=== PATIENT | male | born 1955 | race Two or more races ===

== ENCOUNTER 2024-12-30 01:51 | Emergency (ER) | payer MEDICAID, SELFPAY ==
[2024-12-30 01:51] VITALS: BMI 31.6
[2024-12-30 02:00] VITALS: BP 153/89; PULSE 111; RESP 20; TEMP 36.8; O2SAT 96
[2024-12-30 03:13] LABS: Collection Type, Urine Catheter; Squamous Epithelial Cell,Urine 0 /hpf (0-5); WBC,Urine 0 /hpf (0-5)
[2024-12-30 03:20] LABS: Bilirubin,Urine Negative (Negative); Blood,Urine 2+ (Negative); Clarity,Urine Clear (Clear/Hazy); Color,Urine Colorless (Lt Yel-Yel); Glucose, Urine 3+ (Negative); Ketones,Urine Negative (Negative); Leukocyte Esterase,Urine Negative (Negative); Nitrite,Urine Negative (Negative); PH,Urine 6.0 (5.0-7.0); Protein,Urine Negative (Neg - Trace); RBC,Urine < 1 /hpf (0-3); Specific Gravity,Urine 1.005 (1.001-1.035); Urobilinogen,Urine Negative mg/dL (0.0-1.0)
--- NOTE | 2024-12-30 03:32 | EDNOTE_ITS ---
ED Male Genitalurinary RME/HPI General Chief complaint: Urogenital-Male Stated complaint: I CAN'T URINATE Time Seen by Provider: 12/30/24 02:05 Arrival date/time: 12/30/24 01:51 This is a case of 69-year-old male with history of urinary retention came in in the emergency room due to unable to urinate for 4 hours patient denies any abdominal pain denies any fever chills nausea vomiting or blood in the urine Limitations: no limitations Related Data Previous Rx's ?Medication ?Instructions ?Recorded levofloxacin 750 mg tablet 750 mg PO QDAY #5 tabs 02/04 03/25 tamsulosin 0.4 mg capsule (Flomax) 0.4 mg PO QDAY #30 caps 01/07/24 tamsulosin 0.4 mg capsule (Flomax) 0.4 mg PO QDAY #10 caps 12/30/24 Allergies Allergy/AdvReac Type Severity Reaction Status Date / Time No Known Allergies Allergy Verified 12/30/24 01:51 Review of Systems Review of Systems Systems Reviewed: All systems reviewed, normal except as documented Constitutional Constitutional: Reports system reviewed and no additional complaints, except as documented and Reports as per HPI Cardiovascular Cardiovascular: Reports system reviewed and no additional complaints, except as documented and Reports as per HPI Respiratory Respiratory: Reports system reviewed and no additional complaints, except as documented and Reports as per HPI Gastrointestinal Gastrointestinal: Reports system reviewed and no additional complaints, except as documented Musculoskeletal Musculoskeletal: Reports system reviewed and no additional complaints, except as documented and Reports as per HPI Neurologic Neurologic: Reports system reviewed and no additional complaints, except as documented and Reports as per HPI Past Medical History Past Medical History CARDIAC: Negative Congestive Heart Failure RESPIRATORY: Negative Chronic Obstructive Pulmonary Disease (COPD) GENITOURINARY: Positive Genitourinary Disorders and Benign Prostatic Hyperplasia; Negative Renal Disease ENDOCRINE: Negative Diabetes Mellitus Type 1 or Diabetes Mellitus Type 2 Social History SMOKING STATUS: Never smoker ED Exam General Limitations: Present no limitations General appearance: Present alert, in no apparent distress and other (Awake alert oriented not in distress nontoxic looking well-hydrated well-nourished) Head Head exam: Present atraumatic, normocephalic and normal inspection Eye Eye exam: Present normal appearance, PERRL and EOMI ENT ENT exam: Present normal exam, normal oropharynx and mucous membranes moist Neck Neck exam: Present normal inspection, full ROM and trachea midline; Absent tenderness, meningismus, lymphadenopathy or thyromegaly Chest Chest inspection: Present normal inspection and symmetric chest wall rise; Absent tenderness Respiratory Respiratory exam: Present normal lung sounds bilaterally; Absent respiratory distress, wheezes, stridor or accessory muscle use Cardiovascular Cardiovascular exam: Present regular rate, normal rhythm and normal heart sounds; Absent bradycardia, tachycardia, irregular rhythm, systolic murmur or diastolic murmur Abdominal Exam Abdominal exam: Present soft, normal bowel sounds and other (Bladder is not distended not tender); Absent distention, tenderness, guarding, rebound, rigidity, diminished bowel sounds, hyperactive bowel sounds, hypoactive bowel sounds, organomegaly, obturator sign, De La Cruz's sign, Rovsing's sign, tenderness at McBurney's Point or hernia Extremities Exam Extremities exam: Present normal inspection and full ROM Back Exam Back exam: Present normal inspection and full ROM Neurological Exam Neurological exam: Present alert, oriented X3, CN II-XII intact, normal gait and reflexes normal; Absent motor sensory deficit Psychiatric Psychiatric exam: Present normal affect and normal mood Skin Skin exam: Present warm, dry, intact and normal color Course Quality Measures none Orders Category Date Time Status Joyner [Urinary Catheter] QS Care 12/30/24 02:05 Active Urinalysis Stat Lab 12/30/24 02:30 Completed Vital Signs Vital signs: Vital Signs Temperature 98.3 F 12/30/24 02:00 Pulse Rate 111 H 12/30/24 02:00 Respiratory Rate 20 12/30/24 02:00 Blood Pressure 153/89 H 12/30/24 02:00 Pulse Oximetry (%) 96 12/30/24 02:00 Oxygen Delivery Method Room Air 12/30/24 02:00 Oxygen saturation is 96% on room air Urogenital - Male MDM Narrative MDM Narrative:: This is a case of 69-year-old male with history of urinary retention came in in the emergency room due to unable to urinate for 4 hours patient denies any abdominal pain denies any fever chills nausea vomiting or blood in the urine physical examination patient is awake alert oriented not in distress nontoxic looking abdominal exam is benign nonsurgical no guarding no rebound no rigidity bladder is not distended nor tender the rest of the physical examination and neurological exam is normal and unremarkable Joyner catheter was inserted took out 800 urine yellowish in color no blood urinalysis showed normal patient will follow-up with PCP in 2 days for reevaluation worsening symptoms or any emergent concern return precaution to the ER was advised Patient was discharged with comfortable condition walking with stable gait. Patient verbalized no further complains explained diagnosis and answered patient question. Patient is comfortable with the proposed management plan including the need to follow up with his/her primary care physician and any specialist if applicable Discussed patient for any urgent condition or worsening sx, He/She needed to go to emergency room immediately or call 911. Patient acknowledge the responsibility to follow up as instructed and to monitor her/his symptoms. For any persistence of the symptoms for more than 3-5 days return precaution advised. Discussed the result of the test and was given printed discharge instruction Patient data External records reviewed:: [facility] previous records Clinical information provided by:: patient Social determinants that could affect healthcare access:: none Patient has the following chronic illnesses:: None How is presenting disease/condition affected by chronic disease/condition?: no chronic disease Evaluation data The following diagnostics were reviewed and interpreted by me:: lab results Lab and/or radiology exams considered but not ordered:: Reviewed Interpretation Summary: Reviewed Medications / Prescriptions Medications or Prescriptions considered but not ordered:: Given Medication administrations:: Given Consultations Consultation(s) initiated? (list below): No Diagnosis Urogenital Male Differential Diagnosis: urinary tract infection and acute retention of urine Most likely diagnosis given after review of the tests above:: Urinary retention Admission Indicated Admission indicated?: not indicated Explain why admission is indicated or not indicated:: Not indicated Admission Request Was there a request for admission?: No Admission Attestation Admission request attestation: Not indicated Disposition Plan Disposition Plan: Discharge Discharge Attestation Discharge Attestation: The patient and all family members were given an opportunity to ask questions and understood the discharge instructions. Discharge instructions specifically effects, indications for sooner follow up or return to the emergency department, and the expected course of current diagnosis. Patient condition: Stable Discharge Plan Plan Patient Disposition: HOME (Self Care) Patient condition on transfer: Stable Prescriptions/Referrals Prescriptions/Med Rec: New tamsulosin [Flomax] 0.4 mg capsule 0.4 mg PO QDAY Qty: 10 0RF No Action levofloxacin 750 mg tablet 750 mg PO QDAY Qty: 5 0RF tamsulosin [Flomax] 0.4 mg capsule 0.4 mg PO QDAY Qty: 30 0RF Referrals: Elba Muse FNP [Primary Care Provider] - In 1 week Problem List Clinical Impression: Urinary retention Patient/Caregiver Discharge Instructions Education Materials: ED Joyner Catheter, Care, ED Urinary Retention, Male Additional Instructions: Follow-up with your primary care physician in 2 days for reevaluation and to be referred to urologist for further evaluation and treatment of urinary retention declines persistent worsening symptoms or any emergent concern call 911 or go to the nearest emergent room Print Language: Mongolian Stand Alone Forms: Thea Award Info., Patient Portal Info Letter NAKITA/FITZ Supervising Physician NAKITA/FITZ Supervising Physician: Dr. Monika Jorge
== END 2024-12-30 04:11 | disposition home or self-care (01) ==
PROVIDERS: Nurse Practitioner Family; Emergency Provider Emergency Medicine; PCP Nurse Practitioner Family
DX: R33.9 Retention of urine, unspecified (principal)
CPT/HCPCS: 51702; 81001; 99282; A4314

== ENCOUNTER 2025-01-04 02:14 | Emergency (ER) | payer MEDICAID, SELFPAY ==
[2025-01-04 02:23] VITALS: BP 122/79; PULSE 142; RESP 20; TEMP 37.1; O2SAT 97
[2025-01-04 02:37] LABS: Collection Type, Urine Voided; Squamous Epithelial Cell,Urine 0 /hpf (0-5)
[2025-01-04 02:41] VITALS: PULSE 117; RESP 18; O2SAT 97
[2025-01-04 02:47] LABS: Bacteria,Urine 3+; Bilirubin,Urine Negative (Negative); Blood,Urine 3+ (Negative); Budding Yeast,Urine Present; Clarity,Urine Turbid (Clear/Hazy); Color,Urine Yellow (Lt Yel-Yel); Glucose, Urine 2+ (Negative); Ketones,Urine Trace (Negative); Leukocyte Esterase,Urine Positive (Negative); Nitrite,Urine Positive (Negative); PH,Urine 6.5 (5.0-7.0); Protein,Urine Trace (Neg - Trace); RBC,Urine 16 /hpf (0-3); Specific Gravity,Urine 1.009 (1.001-1.035); Urobilinogen,Urine Negative mg/dL (0.0-1.0); WBC,Urine 1412 /hpf (0-5)
--- NOTE | 2025-01-04 03:02 | EDNOTE_ITS ---
ED Male Genitalurinary RME/HPI General Chief complaint: Urogenital-Male Stated complaint: CANT URINATE Time Seen by Provider: 01/04/25 02:26 Arrival date/time: 01/04/25 02:14 This is a case of 69-year-old male with history of BPH and urinary retention came in in the emergency room due to unable to urinate for 6 hours patient states that they removed his Joyner catheter 3 days ago and he was fine until 6 hours prior to arrival in the emergency room patient was not able to urinate thus decided to sought consult here in the emergency room denies any fever chills nausea vomiting or abdominal pain no flank pain Limitations: no limitations Related Data Previous Rx's ?Medication ?Instructions ?Recorded levofloxacin 750 mg tablet 750 mg PO QDAY #5 tabs 02/04 03/25 tamsulosin 0.4 mg capsule (Flomax) 0.4 mg PO QDAY #30 caps 01/07/24 tamsulosin 0.4 mg capsule (Flomax) 0.4 mg PO QDAY #10 caps 12/30/24 cefuroxime axetil 500 mg tablet 500 mg PO Q12H #20 tab s 01/04/25 tamsulosin 0.4 mg capsule (Flomax) 0.4 mg PO QDAY #10 caps 01/04/25 Allergies Allergy/AdvReac Type Severity Reaction Status Date / Time No Known Allergies Allergy Verified 01/04/25 02:23 Review of Systems Review of Systems Systems Reviewed: All systems reviewed, normal except as documented Constitutional Constitutional: Reports system reviewed and no additional complaints, except as documented and Reports as per HPI Cardiovascular Cardiovascular: Reports system reviewed and no additional complaints, except as documented and Reports as per HPI Respiratory Respiratory: Reports system reviewed and no additional complaints, except as documented and Reports as per HPI Gastrointestinal Gastrointestinal: Reports system reviewed and no additional complaints, except as documented and Reports as per HPI Genitourinary Genitourinary: Reports system reviewed and no additional complaints, except as documented and Reports as per HPI Neurologic Neurologic: Reports system reviewed and no additional complaints, except as documented and Reports as per HPI Past Medical History Past Medical History CARDIAC: Negative Congestive Heart Failure RESPIRATORY: Negative Chronic Obstructive Pulmonary Disease (COPD) GENITOURINARY: Positive Genitourinary Disorders and Benign Prostatic Hyperplasia; Negative Renal Disease ENDOCRINE: Negative Diabetes Mellitus Type 1 or Diabetes Mellitus Type 2 Social History SMOKING STATUS: Never smoker ED Exam General Limitations: Present no limitations General appearance: Present alert, in no apparent distress and other (Zickel examination patient is awake alert oriented not in distress nontoxic looking well-hydrated well-nourished) Head Head exam: Present atraumatic, normocephalic and normal inspection Eye Eye exam: Present normal appearance, PERRL and EOMI ENT ENT exam: Present normal exam, normal oropharynx and mucous membranes moist Neck Neck exam: Present normal inspection, full ROM and trachea midline; Absent tenderness, meningismus, lymphadenopathy or thyromegaly Chest Chest inspection: Present normal inspection and symmetric chest wall rise; Absent tenderness Respiratory Respiratory exam: Present normal lung sounds bilaterally; Absent respiratory distress, wheezes, stridor, accessory muscle use or prolonged expiratory phase Cardiovascular Cardiovascular exam: Present regular rate, normal rhythm and normal heart sounds; Absent bradycardia, tachycardia, irregular rhythm, systolic murmur or diastolic murmur Abdominal Exam Abdominal exam: Present soft, normal bowel sounds and other (No CVA tenderness bladder is not distended not tender); Absent distention, tenderness, guarding, rebound, diminished bowel sounds, hyperactive bowel sounds, hypoactive bowel sounds, organomegaly, psoas sign, obturator sign, heel tap sign, De La Cruz's sign, Rovsing's sign, tenderness at McBurney's Point, ascites or hernia Extremities Exam Extremities exam: Present normal inspection and full ROM Back Exam Back exam: Present normal inspection and full ROM Neurological Exam Neurological exam: Present alert, oriented X3, CN II-XII intact, normal gait and reflexes normal; Absent motor sensory deficit Psychiatric Psychiatric exam: Present normal affect and normal mood Skin Skin exam: Present warm, dry, intact and normal color Course Quality Measures none Orders Category Date Time Status Joyner [Urinary Catheter] QS Care 01/04/25 02:26 Active Urinalysis Stat Lab 01/04/25 02:30 Completed Urine Culture Stat Lab 01/04/25 02:58 Ordered cefTRIAXone [Rocephin] 2 gm Med 01/04/25 02:57 Discontinued Lidocaine 1% 20 ml [Xylocaine 1% 20 ML] 4.2 ml IM X1 Vital Signs Vital signs: Vital Signs Temperature 98.7 F 01/04/25 02:23 Pulse Rate 142 H 01/04/25 02:23 Respiratory Rate 20 01/04/25 02:23 Blood Pressure 122/79 01/04/25 02:23 Pulse Oximetry (%) 97 01/04/25 02:23 Oxygen Delivery Method Room Air 01/04/25 02:23 Oxygen saturation is 97% on room air Urogenital - Male MDM Narrative MDM Narrative:: This is a case of 69-year-old male with history of BPH and urinary retention came in in the emergency room due to unable to urinate for 6 hours patient states that they removed his Joyner catheter 3 days ago and he was fine until 6 hours prior to arrival in the emergency room patient was not able to urinate thus decided to sought consult here in the emergency room denies any fever chills nausea vomiting or abdominal pain no flank pain physical examination patient is awake alert oriented not in distress nontoxic looking well-hydrated well-nourished abdominal exam is benign nonsurgical no guarding no rebound no rigidity no tenderness no CVA tenderness bladder is not distended not tender negative psoas negative straight and negative Rovsing sign McBurney's no De La Cruz sign negative CVA tenderness Joyner catheter was inserted patient noted urine output of 1000 mL and noted that the urine is cloudy thus ordered urinalysis patient urine suggestive of urinary tract infection positive WBC and blood in the urine test patient was given a 2 g ceftriaxone IM here in the emergency room and was discharged with cefuroxime for 10 days urine culture was sent to the laboratory patient was advised to follow-up with PCP in 2 days for evaluation and to be referred to urologist for further evaluation and treatment of urinary retention and Joyner catheter for any recurrence persistent worsening symptoms or any emergent concern return precaution in the ER is advised Patient was discharged with comfortable condition walking with stable gait. Patient verbalized no further complains explained diagnosis and answered patient question. Patient is comfortable with the proposed management plan including the need to follow up with his/her primary care physician and any specialist if applicable Discussed patient for any urgent condition or worsening sx, He/She needed to go to emergency room immediately or call 911. Patient acknowledge the responsibility to follow up as instructed and to monitor her/his symptoms. For any persistence of the symptoms for more than 3-5 days return precaution advised. Discussed the result of the test and was given printed discharge instruction Patient data External records reviewed:: [facility] previous records Clinical information provided by:: patient Social determinants that could affect healthcare access:: none Patient has the following chronic illnesses:: None How is presenting disease/condition affected by chronic disease/condition?: no chronic disease (None) Evaluation data The following diagnostics were reviewed and interpreted by me:: lab results and radiology exam(s) Lab and/or radiology exams considered but not ordered:: Reviewed Interpretation Summary: Reviewed Medications / Prescriptions Medications or Prescriptions considered but not ordered:: Given Medication administrations:: Medication Administration History Discontinued Medications Ceftriaxone Sodium 2 gm/ (Lidocaine HCl 4.2 ml) 0 gm IM X1 ONE Stop: 01/04/25 02:58 Given Consultations Consultation(s) initiated? (list below): No Diagnosis Urogenital Male Differential Diagnosis: urinary tract infection and acute retention of urine Most likely diagnosis given after review of the tests above:: Urinary retention Admission Indicated Admission indicated?: not indicated Explain why admission is indicated or not indicated:: Not indicated Admission Request Was there a request for admission?: No Admission Attestation Admission request attestation: Not indicated Disposition Plan Disposition Plan: Discharge Discharge Attestation Discharge Attestation: The patient and all family members were given an opportunity to ask questions and understood the discharge instructions. Discharge instructions specifically effects, indications for sooner follow up or return to the emergency department, and the expected course of current diagnosis. Patient condition: Stable Discharge Plan Plan Patient Disposition: HOME (Self Care) Patient condition on transfer: Stable Prescriptions/Referrals Prescriptions/Med Rec: New cefuroxime axetil 500 mg tablet 500 mg PO Q12H Qty: 20 0RF tamsulosin [Flomax] 0.4 mg capsule 0.4 mg PO QDAY Qty: 10 0RF No Action levofloxacin 750 mg tablet 750 mg PO QDAY Qty: 5 0RF tamsulosin [Flomax] 0.4 mg capsule 0.4 mg PO QDAY Qty: 30 0RF tamsulosin [Flomax] 0.4 mg capsule 0.4 mg PO QDAY Qty: 10 0RF Problem List Clinical Impression: Urinary retention, BPH (benign prostatic hyperplasia), Urinary tract infection Patient/Caregiver Discharge Instructions Education Materials: Urinary Tract Infections in Men, Benign Prostatic Hyperplasia, ED Joyner Catheter, Care, ED Urinary Retention, Male Additional Instructions: It is very important to see a urologist in 2 days for further evaluation and t reatment of urinary retention and BPH follow-up with your primary care physician in 2 days for reevaluation and to be referred to urologist for further evaluation and treatment regarding persistent worsening symptoms and emergent concern call 911 or go to the nearest emergency room take your medication as directed finish the course of antibiotic Joyner catheter care is advised Print Language: Japanese Stand Alone Forms: Thea Award Info., Patient Portal Info Letter PA/DENIAL RESOLUTION SPECIALIST Supervising Physician PA/DENIAL RESOLUTION SPECIALIST Supervising Physician: Dr. Lyon
[2025-01-04] MEDS: cefTRIAXone 2 GM, LIDOCAINE 1% 20 ML 4.2 ML IM (03:21)
[2025-01-04 03:29] VITALS: RESP 16
== END 2025-01-04 03:29 | disposition home or self-care (01) ==
LOC: SERX 03:41
PROVIDERS: Nurse Practitioner Family; Emergency Provider Emergency Medicine; PCP Physician Assistant
DX: N39.0 Urinary tract infection, site not specified (principal); N40.1 Benign prostatic hyperplasia with lower urinary tract symptoms; R33.8 Other retention of urine
CPT/HCPCS: 51702; 81001; 87086; 96372; 99282; A4314; J0696; J3490